=== PATIENT | male | born 1975 | race Caucasian/White ===

== ENCOUNTER 2018-01-09 15:09 | Emergency (ER) | payer OTHER ==
[~2018-01-09] VITALS: Ht 175.3 cm; Wt 118.0 kg
[2018-01-09 15:12] VITALS: BP 163/97; PULSE 95; RESP 16; TEMP 97.6; O2SAT 98
--- NOTE | 2018-01-09 16:00 | RADRPT ---
EXAM DATE/TIME: 01/09/2018 15:54 [place] COMPARISON: No previous studies available for comparison. INDICATIONS : Hemoptysis. MEDICAL HISTORY : None. SURGICAL HISTORY : None. ENCOUNTER: Initial ACUITY: 1 day PAIN SCORE: 0/10 LOCATION: Bilateral chest FINDINGS: PA and lateral views of the chest demonstrate the lungs to be symmetrically aerated without evidence of mass, infiltrate or effusion. The cardiomediastinal contours are unremarkable. Osseous structure s are intact. CONCLUSION: No acute disease. Torres Garcia MD on January 09, 2018 at 15:57 Board Certified Radiologist. This report was verified electronically.
[2018-01-09] MEDS ORDERED: predniSONE 50 MG TAB PO ONE (16:15)
[2018-01-09] MEDS: RESP: ALBUTEROL 2.5 MG/IPRATROPIUM 0.5 MG NEB (SCH) INH (16:25)
--- NOTE | 2018-01-09 16:27 | PD ---
HPI Chief Complaint: Cold / Flu Symptoms Time Seen by Provider: 16:09 Travel History International Travel<30 days: No Contact w/Intl Traveler<30days: No Traveled to known affect area: No History of Present Illness HPI Patient is a 42 year old male who comes in complaining of a cough for 1 week. He says he has coughed so hard it has made him vomit. He came in today because he was concerned after his sputum had some blood streaks in it. He does not think he has had any fever. He says he overall has been feeling better, but the cough is not improving. He says he has pain to his chest, only when he coughs. He is a smoker. Severity is mild to moderate. PFSH Past Medical History Diabetes: Yes Hypertension: Yes Past Surgical History Surgical History: No Previous Surgery Social History Tobacco Use: Yes Allergies-Medications (Allergen,Severity, Reaction): Coded Allergies: fluoxetine (Verified Allergy, Unknown, 01/09/18) Reported Meds & Prescriptions Reported Meds & Active Scripts Active Zithromax Z-Chas (Azithromycin) 250 Mg Dspk 250 Mg PO DIRECTED 500 MG (2 tabs) day 1, then 1 tab days 2-5. Prednisone 50 Mg Tab 50 Mg PO DAILY 4 Days Ventolin Hfa 18 GM Inh (Albuterol Sulfate) 90 Mcg/Act Aer 2 Puff INH Q4-6H PRN Metformin (Metformin HCl) 500 Mg Tab 500 Mg PO BIDPC Reported Atenolol 25 Mg Tab 25 Mg PO DAILY Metformin (Metformin HCl) 1,000 Mg Tab 1,000 Mg PO DAILY With a meal Omeprazole 20 Mg Tab 20 Mg PO DAILY Review of Systems Except as stated in HPI: all other systems reviewed are Neg General / Constitutional: No: Fever, Chills HENT: No: Headaches, Lightheadedness Respiratory: Positive: Cough Gastrointestinal: No: Nausea, Vomiting Musculoskeletal: No: Myalgias Skin: No Rash, No Change in Pigmentation Neurologic: No: Weakness, Dizziness Physical Exam Narrative GENERAL: Awake and alert, in no acute distress. SKIN: Focused skin assessment warm/dry. HEAD: Atraumatic. Normocephalic. EYES: Pupils equal and round. No scleral icterus. ENT: Mucous membranes pink and moist. NECK: Trachea midline. No JVD. CARDIOVASCULAR: Regular rate and rhythm. No murmur appreciated. RESPIRATORY: No accessory muscle use. Diffuse wheezing throughout both lungs. Breath sounds equal bilaterally. GASTROINTESTINAL: Abdomen soft, non-tender, nondistended. MUSCULOSKELETAL: No obvious deformities. No clubbing. No cyanosis. No edema. NEUROLOGICAL: Awake and alert. No obvious cranial nerve deficits. Motor grossly within normal limits. Normal speech. PSYCHIATRIC: Appropriate mood and affect; insight and judgment normal. Data Data Last Documented VS Vital Signs Date Time Temp Pulse Resp B/P (MAP) Pulse Ox O2 Delivery O2 Flow Rate FiO2 01/09/18 17:13 95 18 162/90 (114) 96 01/09/18 15:12 97.6 Orders Orders Electrocardiogram (01/09/18 ) Chest, Pa & Lat (01/09/18 ) Albuterol-Ipratropium Neb (Duoneb Neb) (01/09/18 16:15) Prednisone (Deltasone) (01/09/18 16:15) Ed Discharge Order (01/09/18 17:06) [facility] Medical Decision Making Medical Screen Exam Complete: Yes Emergency Medical Condition: Yes Differential Diagnosis pneumonia vs bronchitis vs COPD vs viral illness Narrative Course Patient is a 42-year-old male who comes in complaining of cough. Exam shows diffuse wheezing throughout both lungs. X-ray performed shows no acute issues. Patient given 2 DuoNeb's, a dose of prednisone. Lung sounds have improved after DuoNeb's. He will be discharged home with prescriptions for albuterol, azithromycin, prednisone. He is advised to quit smoking. Advised follow-up with a primary care doctor. Advised return anytime for any worsening symptoms. Patient is requesting a prescription for his metformin as he has not found a primary care doctor yet. This was provided for him. Diagnosis Primary Impression: Bronchitis Patient Instructions: Acute Bronchitis (ED), General Instructions Additional Instructions: Follow-up with a primary care doctor. Use albuterol as needed for shortness of breath. Take all of the antibiotic. Start the prednisone tomorrow as you already had a dose today. Return anytime for any worsening symptoms. Try to quit smoking. Scripts Azithromycin (Zithromax Z-Chas) 250 Mg Dspk 250 MG PO DIRECTED for Infection, #1 DSPK 0 Refills 500 MG (2 tabs) day 1, then 1 tab days 2-5. Prov: Naty Casarez MD 01/09/18 Prednisone (Prednisone) 50 Mg Tab 50 MG PO DAILY for 4 Days, #4 TAB 0 Refills Prov: Naty Casarez MD 01/09/18 Albuterol 18 GM Inh (Ventolin Hfa 18 GM Inh) 90 Mcg/Act Aer 2 PUFF INH Q4-6H Y for SHORTNESS OF BREATH, #1 INHALER 0 Refills Prov: Naty Casarez MD 01/09/18 Metformin (Metformin) 500 Mg Tab 500 MG PO BIDPC for Blood Sugar Management, #60 TAB 0 Refills Prov: Naty Casarez MD 01/09/18 Disposition: 01 DISCHARGE HOME Condition: Stable Naty Casarez MD Jan 09, 2018 16:27
[2018-01-09] MEDS ORDERED: OMEP20TA93 PO (16:43)
[2018-01-09] MEDS ORDERED: METF1000 PO (16:43)
[2018-01-09] MEDS ORDERED: ATEN25TA PO (16:43)
[2018-01-09] MEDS ORDERED: ZITHTAB PO (17:01)
[2018-01-09] MEDS ORDERED: PRED50 PO (17:01)
[2018-01-09] MEDS ORDERED: METF500T PO (17:01)
[2018-01-09] MEDS ORDERED: VENTAER INH (17:01)
[2018-01-09 17:13] VITALS: BP 162/90
--- NOTE | 2018-01-11 00:28 | EKG ---
Date Performed: 01/09/2018 Time Performed: 15:19:37 PTAGE: 42 years EKG: Sinus rhythm MODERATE VOLTAGE CRITERIA FOR LVH, CONSIDER NORMAL VARIANT BORDERLINE ECG NO PREVIOUS TRACING DOCTOR: Matthew Cates Interpretating Date/Time 01/11/2018 00:14:21
== END 2018-01-09 17:19 | disposition home or self-care (01) ==
LOC: NEPD 15:09
DX: J40 Bronchitis, not specified as acute or chronic (principal); R94.31 Abnormal electrocardiogram [ECG] [EKG]; E11.9 Type 2 diabetes mellitus without complications; I10 Essential (primary) hypertension; Z72.0 Tobacco use
CPT/HCPCS: 71046; 93005; 94640; 94664; 99284; J7512